=== PATIENT | female | born 1965 | race Native Hawaiian/Other Pacific Islander ===

== ENCOUNTER → 2021-03-04 09:38 | Outpatient (BNVA) | payer OTHER, SELFPAY | PROVIDERS: Family Provider Family Medicine; PCP Family Medicine; Visit Provider Registered Nurse Neonatal Intensive Care | DX: Z20.822 Contact with and (suspected) exposure to COVID-19 (principal) | CPT/HCPCS: 87426; 87635 ==

== ENCOUNTER → 2021-07-12 13:19 | Outpatient (BNVA) | payer OTHER, SELFPAY | PROVIDERS: Family Provider Family Medicine; PCP Family Medicine; Visit Provider Family Medicine | DX: Z20.828 Contact with and (suspected) exposure to other viral communicable diseases (principal) | CPT/HCPCS: 87635 ==

== ENCOUNTER → 2022-03-27 08:35 | Outpatient (BNVA) | payer OTHER, SELFPAY | PROVIDERS: Family Provider Family Medicine; PCP Family Medicine; Visit Provider Family Medicine | DX: I10 Essential (primary) hypertension (principal); I25.10 Atherosclerotic heart disease of native coronary artery without angina pectoris; Z00.00 Encounter for general adult medical examination without abnormal findings | CPT/HCPCS: 80053; 80061; 85025 ==

== ENCOUNTER 2022-05-04 09:52 | Outpatient (CLI) | payer OTHER, SELFPAY ==
--- NOTE | 2022-05-04 10:04 | MM_ITS ---
WS: [id number] Bilateral screening 3D tomosynthesis digital mammogram, 05/04/2022 Clinical Data: SCREEN Comparison: 05/13/2017, 06/02/2007. Findings: The breast parenchymal pattern shows fibroglandular tissue. No spiculated masses or clustered calcifi cations are seen. There are no secondary signs of carcinoma. MM/[place] [id number] Impression: 1. Negative bilateral mammogram unchanged. 2. Recommend annual screening mammograms. BIRADS: 1-Negative FOLLOW UP: 1 Year Follow-up The CAD auto design checker was used.
== END 2022-05-04 09:53 | disposition home or self-care (01) ==
LOC: RAD 09:52
PROVIDERS: PCP Family Medicine; Visit Provider Family Medicine
DX: Z12.31 Encounter for screening mammogram for malignant neoplasm of breast (principal)
CPT/HCPCS: 77063; 77067

== ENCOUNTER 2022-09-14 16:34 | Emergency (ER) | payer OTHER, SELFPAY ==
[2022-09-14] VITALS (12 sets, daily range): BP systolic 130–160; BP diastolic 89–93; PULSE 73–85; RESP 18–24; TEMP 36.7; O2SAT 90–98; BMI 34.7
--- NOTE | 2022-09-14 16:48 | ECG_ITS ---
[facility] Test Date: 2022-09-14 Pat Name: Rema Greene Department: Room: Gender: Female Trouble Tracer: : 1965 Requested By: Ignacia Jacques Order Number: [id number] Hector MD: Rachel Amaya M.D. Measurements Intervals Mobile Rate: 79 P: 54 [place]: 176 QRS: 81 QRSD: 89 T: 63 QT: 310 QTc: 357 Interpretive Statements SINUS RHYTHM NONSPECIFIC T-WAVE ABNORMALITY No previous ECG available for comparison Electronically Signed On 09-14-2022 21:46:36 RENEWALS SPECIALIST by Rachel Amaya M.D. [id number]
--- NOTE | 2022-09-14 16:48 | XRR_ITS ---
PROCEDURE INFORMATION: Exam: XR Chest Exam date and time: 09/14/2022 5:10 PM Age: 56 years old Clinical indication: Other: Chest pain TECHNIQUE: Imaging protocol: Radiologic exam of the chest. Views: 1 view. COMPARISON: No relevant prior studies available. FINDINGS: Lungs: Unremarkable. No consolidation. Pleural spaces: Unremarkable. No pleural effusion. No pneumothorax. Heart/Mediastinum: Ascending thoracic aorta is suspected to be dilated. Bones/joints: Unremarkable. XR/XR chest 1V portable [id number] IMPRESSION: 1. No acute findings. 2. Ascending thoracic aorta is suspected to be dilated. Chest CT could further characterize this.
--- NOTE | 2022-09-14 16:57 | ED_ITS ---
HPI - Chest Pain General: Chief Complaint: Chest Pain Stated Complaint: Chest Pain Time Seen by Provider: 09/14/22 16:44 Source: patient and other (outside provider) History of Present Illness: 56-year-old female comes in complaining of chest pain. She has been having the pain off and on for couple of weeks. The pain has been lasting anywhere from just a couple of minutes to up to 10 minutes. Today the pain is lasted longer than usual. She describes it as a full sensation in her mid chest area radiating up into her jaw and the back of her head. She does get associated nausea, diaphoresis and shortness of breath. Patient has a history of hypertension, diabetes and a family history of cardiac disease. No prior [place] history. She rates the pain currently 4 out of 10. She states at its worst today it was 9 out of 10. Risk Factors: Coronary artery disease risk factors: diabetes, hypertension and family history of CAD before age 50 Review of Systems Narrative: See HPI PFS ED PFSH: Medical History (Updated 09/14/22 @ 17:30 by Ignacia Jacques MD) Allergic rhinitis due to allergen Bronchitis Human bite causing injury URI (upper respiratory infection) Social History (Updated 12/28/20 @ 10:36 by Thor Dickinson LPN) Smoking and tobacco status: current every day smoker cigarettes Quit status (tobacco): not considering quitting Second hand smoke exposure: Yes Alcohol intake: never Desire information about alcohol rehabilitation?: No Desire information about substance/drug rehabilitation?: No Physical Exam Const: COMMON NORMALS: no acute distress, healthy appearing and well nourished HENMT: COMMON NORMALS: normocephalic, atraumatic, Normal external nose present and oropharynx normal HEAD & SCALP: normocephalic and atraumatic NOSE: Normal external nose present Neck/C-Spine: COMMON NORMALS: full ROM and supple Resp: COMMON NORMALS: normal respiratory effort, No use of accessory muscles and clear to auscultation bilaterally AUSCULTATION: clear to auscultation bilaterally Cardio: COMMON NORMALS: regular rate and regular rhythm RATE: regular rate RHYTHM: regular rhythm GI: COMMON NORMALS: Normal to inspection, nondistended, normoactive bowel sounds present, Soft to palpation and non-tender PALPATION: Yes Soft to palpation Extremity: COMMON NORMALS: normal to inspection, no calf tenderness and no pedal edema Course ED course: Patient's been evaluated in the emergency department. She had an IV placed and labs obtained. She had an EKG performed which shows some nonspecific ST segment changes but no STEMI. She has been given 4 baby aspirin as well as sublingual nitroglycerin. Her initial troponin is 6. Patient's chest x-ray shows no infiltrate. She does have a prominent aortic knob per my interpretation. Patient's D-dimer was elevated at 0.72. CT arteriogram of the chest was obtained and is negative for pulmonary embolism but she does have a dilated aorta at 3.6 cm. Reevaluation(s): Reevaluation #1: Patient remains pain-free. Repeat troponin is 6 with a delta of 0. Discussed the patient's results with her. Recommended that she start on Protonix or Prilosec daily in the event that this is acid reflux and esophageal spasm. Did discuss the finding of the aortic aneurysm I recommended she talk with her primary care doctor about vascular surgery referral for follow-up. The patient has been instructed to rest over the weekend. She needs to take an aspirin daily. I have given her prescription for nitroglycerin sublingual tablets to have on hand in the event she gets recurrent chest pain. I have instructed to return immediately to the ER if she gets recurrent chest pain. She should call her primary care doctor Saturday to get scheduled for an outpatient stress test. Vital Signs: Vital signs: Vital Signs Temperature 98.1 F 09/14/22 16:38 Pulse Rate 74 09/14/22 20:14 Respiratory Rate 18 09/14/22 20:14 Blood Pressure 130/93 09/14/22 17:00 Pulse Oximetry 90 09/14/22 19:02 Oxygen Delivery Ny thod 09/14/22 16:59 MDM - Chest Pain Medical Decision Making 56-year-old female with a history of hypertension, diabetes and a family history of cardiac disease who presents with chest pain which has been happening off and on for the past couple of weeks. The pain is been happening more often, lasting longer and becoming more severe in intensity. Patient does present with a very high risk sounding history. Will obtain EKG, chest x-ray, laboratory studies and give the patient aspirin and sublingual nitroglycerin. The patient will need serial troponins. We will also obtain a D-dimer. Patient's D-dimer is elevated at 0.72. We will proceed with CT arteriogram of the chest to rule out pulmonary embolism. Her initial troponin is 6. Lab Data 09/14/22 16:55 09/14/22 16:55 Radiology Impressions Chest X-Ray 09/14/22 16:48 IMPRESSION: 1. No acute findings. 2. Ascending thoracic aorta is suspected to be dilated. Chest CT could further characterize this. Chest CTA 09/14/22 17:54 IMPRESSION: 1. Negative for pulmonary embolus. 2. Ascending thoracic aorta somewhat dilated to 3.6 cm. 3. Emphysematous changes. 4. Coronary artery atherosclerotic calcifications. COMMENTS: In the absence of a history or active diagnosis of lung cancer, it is recommended that this patient with emphysema be evaluated for enrollment in a low dose CT lung cancer screening program. Laboratory Results WBC 8.2 10^3/uL (4.0-10.0) 09/14/22 16:55 RBC 4.57 10^6/uL (4.1-5.3) 09/14/22 16:55 Hgb 12.9 g/dL (11.5-15.3) 09/14/22 16:55 Hct 39.7 % (37.0-47.0) 09/14/22 16:55 MCV 86.9 fl (81-99) 09/14/22 16:55 MCH 28.2 pg (28.0-34.0) 09/14/22 16:55 MCHC 32.5 g/dL (30.0-36.0) 09/14/22 16:55 RDW 13.1 % (12.1-15.1) 09/14/22 16:55 Plt Count 208 10^3/cmm (130-400) 09/14/22 16:55 MPV 11.4 fL (7.4-10.4) H 09/14/22 16:55 Neut % (Auto) 58.3 % 09/14/22 16:55 Lymph % (Auto) 34.0 % 09/14/22 16:55 [place] % (Auto) 5.1 % 09/14/22 16:55 Eos % (Auto) 2.1 % 09/14/22 16:55 Baso % (Auto) 0.4 % 09/14/22 16:55 Neut # (Auto) 4.80 10^3/uL (1.8-7.7) 09/14/22 16:55 Lymph # (Auto) 2.8 10^3/uL (0.8-4.8) 09/14/22 16:55 [place] # (Auto) 0.4 10^3/uL (0.2-0.9) 09/14/22 16:55 Eos # (Auto) 0.2 10^3/uL (0.0-0.8) 09/14/22 16:55 Baso # (Auto) 0.0 10^3/uL (0.0-0.1) 09/14/22 16:55 Nucleated RBC % (auto) 0 % 09/14/22 16:55 Nucleated RBCs # 0.0 /100WBC 09/14/22 16:55 D-Dimer 0.72 ug/mIFEU (0-0.59) H 09/14/22 16:55 Sodium 141 mmol/L (136-145) 09/14/22 16:55 Potassium 3.1 mmol/L (3.5-5.1) L 09/14/22 16:55 Chloride 101 mmol/L (98-107) 09/14/22 16:55 Carbon Dioxide 30 mmol/L (22-29) H 09/14/22 16:55 Anion Gap 13.1 (5-19) 09/14/22 16:55 BUN 19 mg/dL (6-20) 09/14/22 16:55 Creatinine 0.8 mg/dL (0.5-0.9) 09/14/22 16:55 GFR Calculation 73.7 mL/min (90-130) L 09/14/22 16:55 Glucose 105 mg/dL (65-115) 09/14/22 16:55 Calculated Osmolality 295 mOsm/kg (285-295) 09/14/22 16:55 Calcium 10.0 mg/dL (8.5-10.5) 09/14/22 16:55 Total Bilirubin 0.2 mg/dL (0.15-1.2) 09/14/22 16:55 AST 18 U/L (0-32) 09/14/22 16:55 ALT 21 U/L (0-33) 09/14/22 16:55 Alkaline Phosphatase 74 U/L (35-105) 09/14/22 16:55 Troponin T Baseline 6 ng/L (0-10) 09/14/22 16:55 Troponin T 120 Minute 6.00 ng/L (0-10) 09/14/22 18:40 Delta Troponin T 0 ABS# (0-10) 09/14/22 18:40 Total Protein 6.9 g/dL (6.6-8.7) 09/14/22 16:55 Albumin 4.6 g/dL (3.5-5.2) 09/14/22 16:55 Globulin 2.3 g/dL (1.3-4.6) 09/14/22 16:55 EKG Data EKG 1: I personally reviewed and interpreted this EKG as follows: EKG interpretation date: 09/14/22 EKG interpretation time: 17:29 Interpretation: Normal sinus rhythm, [address] segment elevation in V1 and aVR, [address] de pression in V4 and V5, no STEMI Discharge Plan Discharge Patient Disposition: Home Clinical Impression: Chest pain Condition: Stable Prescriptions: New Nitrostat 0.4 mg tablet, sublingual 0.4 mg sublingual Q5M Qty: 90 0RF Rx Instructions: do not exceed 3 doses per episode No Action lisinopril 20 mg tablet 20 mg PO DAILY hydrochlorothiazide 25 mg tablet 25 mg PO DAILY azithromycin 250 mg tablet See Rx Instructions PO .COMPLEX Qty: 6 0RF Rx Instructions: For 250 mg dose pack: take 500 mg today (day 1), then 250 mg for 4 days (days 2-5) PO desloratadine 5 mg tablet,disintegrating 5 mg PO BID Qty: 30 3RF fluticasone propionate 50 mcg/actuation spray,suspension 2 spray intranasal DAILY Qty: 16 3RF Rx Instructions: administer into each nostril benzonatate 200 mg capsule 200 mg PO TID PRN (Reason: cough) Qty: 30 1RF amlodipine 10 mg tablet See Rx Instructions .ROUTE .COMPLEX Qty: 180 3RF Dose Instruction: TAKE 1 TABLET BY MOUTH EVERY DAY FOR hypertension Rx Instructions: TAKE 1 TABLET BY MOUTH EVERY DAY FOR hypertension amitriptyline 10 mg tablet See Rx Instructions .ROUTE .COMPLEX Qty: 90 7RF Dose Instruction: TAKE 3 TABLETS BY MOUTH AT BEDTIME FOR sleep OR HEADACHE Rx Instructions: TAKE 3 TABLETS BY MOUTH AT BEDTIME FOR sleep OR HEADACHE Ozempic 0.25 mg or 0.5 mg(2 mg/1.5 mL) pen injector 0.5 mg SUBCUT .weekly 28 Days Qty: 1.5 3RF alprazolam 0.5 mg tablet 0.5 mg PO TID PRN (Reason: anxiety) Qty: 90 4RF Discharge Orders: Discharge ED (Routine); Ordered 09/14/22 Ordered By: Ignacia Jacques Referrals: Cyril Lara MD [Primary Care Provider] - Discharge Diet: Advance as tolerated Discharge Activity: Limit activity as instructed Patient Instructions: Chest Pain (DC), Opioid Safety, Pain Management Activity Restrictions/Additional Instructions: Continue your aspirin daily. Home to rest. Take a daily Prilosec. Rest over the weekend. Return immediately if you develop recurrent chest pain. Call your primary care doctor on Saturday to get scheduled for an outpatient stress test. Coding Level of Care Code ED Hydrostatic Tubing Tester for Daron Hunt
[2022-09-14] MEDS: acetaminophen 325 mg Tablet 650 MG PO (17:03)
[2022-09-14] MEDS: aspirin 81 mg Chew Tablet 324 MG PO (17:03)
[2022-09-14 17:05] LABS: Basophils % 0.4 %; Eosinophils # 0.2 10^3/uL (0.0-0.8); Eosinophils % 2.1 %; Hematocrit 39.7 % (37.0-47.0); Hemoglobin 12.9 g/dL (11.5-15.3); Lymphocytes # 2.8 10^3/uL (0.8-4.8); Mean Corpuscular HGB Conc 32.5 g/dL (30.0-36.0); Mean Corpuscular Hemoglobin 28.2 pg (28.0-34.0); Mean Corpuscular Volume 86.9 fl (81-99); Mean Platelet Volume 11.4 fL (7.4-10.4); Monocytes # 0.4 10^3/uL (0.2-0.9); Monocytes % 5.1 %; Neutrophils % 58.3 %; Nucleated Red Blood Cells % 0 %; Platelet Count 208 10^3/cmm (130-400); Red Blood Count 4.57 10^6/uL (4.1-5.3); Red Cell Distribution Width 13.1 % (12.1-15.1); White Blood Count 8.2 10^3/uL (4.0-10.0)
[2022-09-14 17:35] LABS: Alanine Aminotransferase 21 U/L (0-33); Albumin Level 4.6 g/dL (3.5-5.2); Alkaline Phosphatase 74 U/L (35-105); Anion Gap 13.1 (5-19); Aspartate Amino Transferase 18 U/L (0-32); Blood Urea Nitrogen 19 mg/dL (6-20); Carbon Dioxide 30 mmol/L (22-29); Chloride 101 mmol/L (98-107); Globulin 2.3 g/dL (1.3-4.6); Glomerular Filtration Rate 73.7 mL/min (90-130); Glucose 105 mg/dL (65-115); Osmolality Calculated 295 mOsm/kg (285-295); Potassium 3.1 mmol/L (3.5-5.1); Sodium 141 mmol/L (136-145); Total Bilirubin 0.2 mg/dL (0.15-1.2); Total Protein 6.9 g/dL (6.6-8.7)
[2022-09-14 17:38] LABS: Troponin(5th) Baseline 6 ng/L (0-10)
[2022-09-14 17:47] LABS: D Dimer 0.72 ug/mIFEU (0-0.59)
--- NOTE | 2022-09-14 17:54 | CTR_ITS ---
PROCEDURE INFORMATION: Exam: CTA Chest With Contrast Exam date and time: 09/14/2022 6:04 PM Age: 56 years old Clinical indication: Pain; Other: Cp w/sob; Additional info: Chest pain elevated d dimer TECHNIQUE: Imaging protocol: Computed tomographic angiography of the chest with contrast. 3D rendering (Not supervised by radiologist): MIP and/or 3D reconstructed images were created by the technologist. Radiation optimization: All CT scans at this facility use at least one of these dose optimization techniques: automated exposure control; mA and/or kV adjustment per patient size (includes targeted exams where dose is matched to clinical indication); or iterative reconstruction. Contrast material: OMNI 350; Contrast volume: 100 ml; Contrast route: INTRAVENOUS (IV); REPORTING DATA: Count of CT and Cardiac NM exams in prior 12 months: This patient has received 0 known CTs and 0 known cardiac nuclear medicine studies in the 12 months prior to the current study. COMPARISON: CR (CHEST, ) 09/14/2022 5:10 PM RADIATION DOSE METRICS: Total DLP (mGy-cm): 402.08 FINDINGS: Pulmonary arteries: Normal. No pulmonary emboli. Aorta: Ascending thoracic aorta somewhat dilated to 3.6 cm. Lungs: Emphysematous changes. Pleural spaces: Unremarkable. No pneumothorax. No pleural effusion. Heart: Unremarkable. No cardiomegaly. No pericardial effusion. Coronary arteries: Coronary artery atherosclerotic calcifications. Lymph nodes: Unremarkable. No enlarged lymph nodes. Bones/joints: Unremarkable. No acute fracture. Soft tissues: Unremarkable. CT/CT angio chest PE protcl [id number] IMPRESSION: 1. Negative for pulmonary embolus. 2. Ascending thoracic aorta somewhat dilated to 3.6 cm. 3. Emphysematous changes. 4. Coronary artery atherosclerotic calcifications. COMMENTS: In the absence of a history or active diagnosis of lung cancer, it is recommended that this patient with emphysema be evaluated for enrollment in a low dose CT lung cancer screening program.
--- NOTE | 2022-09-14 18:56 | ECG_ITS ---
[facility] Test Date: 2022-09-14 Pat Name: Rema Greene Department: Room: Gender: Female Mirror Framer: : 1965 Requested By: Ignacia Jacques Order Number: [id number] Hector MD: Rachel Amaya M.D. Measurements Intervals [place] Rate: 69 P: 66 [place]: 184 QRS: 83 QRSD: 96 T: 76 QT: 414 QTc: 444 Interpretive Statements SINUS RHYTHM Compared to ECG 09/14/2022 16:55:46 T-wave abnormality no longer present Electronically Signed On 09-14-2022 22:01:08 ADMISSIONS NURSE by Rachel Amaya M.D. [id number]
[2022-09-14 19:55] LABS: Troponin 5 2HR Delta 0 ABS# (0-10)
== END 2022-09-14 20:14 | disposition home or self-care (01) ==
PROVIDERS: Emergency Provider Emergency Medicine; PCP Family Medicine
DX: R07.9 Chest pain, unspecified (principal); I25.10 Atherosclerotic heart disease of native coronary artery without angina pectoris; F17.210 Nicotine dependence, cigarettes, uncomplicated
CPT/HCPCS: 71045; 71275; 80053; 84484; 85025; 85378; 93005; 99285; Q9967

== ENCOUNTER → 2023-05-20 15:56 | Outpatient (BNVA) | payer OTHER, SELFPAY | PROVIDERS: PCP Family Medicine; Visit Provider Family Medicine | DX: R30.0 Dysuria (principal); I10 Essential (primary) hypertension; N39.0 Urinary tract infection, site not specified | CPT/HCPCS: 81000; 87086 ==

== ENCOUNTER → 2023-06-10 16:27 | Outpatient (BNVA) | payer OTHER, SELFPAY | PROVIDERS: PCP Family Medicine; Visit Provider Family Medicine | DX: R51.9 Headache, unspecified (principal) | CPT/HCPCS: 85651; 86140 ==

== ENCOUNTER 2023-07-23 07:55 | Outpatient (CLI) | payer OTHER, SELFPAY ==
--- NOTE | 2023-07-23 08:45 | MR_ITS ---
WS: [id number] MRI BRAIN WITH AND WITHOUT CONTRAST HISTORY: worsening headaches COMPARISON: 01/04/2012 TECHNIQUE: Multiplanar imaging performed through the brain with MultiHance 20 ml's IV. No acute infarcts are seen. Collins-white matter differentiation is well preserved. Very mild progressio n of small vessel ischemic changes throughout the white matter. No infarct. No hemorrhage. No susceptibility artifacts or prior lacunar infarcts. Ventricles and extra-axial spaces are normal. Clivus and pituitary gland are normal. Visualized posterior fossa and brainstem are also normal. Postcontrast images are negative for masses or vascular malformations. Dural venous sinuses are normal. Paranasal sinuses: Well aerated with no significant disease. Mastoid air cells: Normal. Calvarium and scalp: Normal. IMPRESSION: 1. No acute infarcts or hemorrhage. 2. Minimal small vessel ischemic change with mild progression since 2011. This may be related to no rmal aging, migraine headaches, hypertension or diabetes. No large territory infarct. 3. No significant sinus disease. Mastoid air cells are clear.
[2023-07-23] MEDS: gadobenate dimeglumine 20 mL vial IV (09:39)
== END 2023-07-23 07:56 | disposition home or self-care (01) ==
PROVIDERS: PCP Family Medicine; Visit Provider Family Medicine
DX: R51.9 Headache, unspecified (principal)
CPT/HCPCS: 70553; A9577

== ENCOUNTER 2023-08-11 02:50 | Emergency (ER) | payer OTHER, SELFPAY ==
[2023-08-11 02:56] VITALS: BP 174/124; PULSE 81; RESP 16; TEMP 36.8; O2SAT 98
[2023-08-11 06:11] LABS: Basophils % 0.3 %; Eosinophils # 0.1 10^3/uL (0.0-0.8); Eosinophils % 0.6 %; Hematocrit 49.4 % (36-47); Lymphocytes # 2.2 10^3/uL (0.8-4.8); Lymphocytes % 20.8 %; Mean Corpuscular Hemoglobin 28.7 pg (27-33); Mean Corpuscular Volume 87.1 fl (85-98); Mean Platelet Volume 12.3 fL (7.4-10.4); Monocytes # 0.6 10^3/uL (0.2-0.9); Monocytes % 5.2 %; Neutrophils # 7.78 10^3/uL (1.8-7.7); Neutrophils % 72.9 %; Nucleated Red Blood Cells % 0 %; Platelet Count 228 10^3/cmm (157-399); Red Blood Count 5.67 10^6/uL (3.85-5.65); Red Cell Distribution Width 13.5 % (12.1-15.1); White Blood Count 10.67 10^3/uL (3.29-11.43)
[2023-08-11] MEDS: ketorolac 30 mg/mL INJ IVP (06:12)
[2023-08-11] MEDS: metoclopramide 5 mg/mL SDV 2 mL 10 MG IVP (06:13)
[2023-08-11] MEDS: hyDRALAzine 20 mg/mL INJ 1 mL 10 MG IVP (06:13)
[2023-08-11] MEDS: diphenhydrAMINE 50 mg/mL SDV 1mL IM (06:13)
[2023-08-11 06:23] VITALS: PULSE 81; RESP 18; O2SAT 100
[2023-08-11 06:39] VITALS: BP 149/108; PULSE 83; O2SAT 96
[2023-08-11 06:40] LABS: Alanine Aminotransferase 21 U/L (0-33); Alkaline Phosphatase 86 U/L (35-105); Anion Gap 14.5 (5-19); Aspartate Amino Transferase 18 U/L (0-32); Blood Urea Nitrogen 13 mg/dL (6-20); Calcium 10.7 mg/dL (8.5-10.5); Carbon Dioxide 29 mmol/L (22-29); Chloride 99 mmol/L (98-107); Globulin 3.7 g/dL (1.3-4.6); Glomerular Filtration Rate 85.6 mL/min (90-130); Glucose 119 mg/dL (65-115); Osmolality Calculated 289 mOsm/kg (285-295); Potassium 3.5 mmol/L (3.5-5.1); Sodium 139 mmol/L (136-145); Total Bilirubin 0.8 mg/dL (0.15-1.2); Total Protein 8.7 g/dL (6.6-8.7)
[2023-08-11 07:00] VITALS: BP 149/108; PULSE 85; RESP 17; O2SAT 97
--- NOTE | 2023-08-11 07:12 | W.ED.HA ---
HPI - Headache General: Chief Complaint: Headache Stated Complaint: Migrain Time Seen by Provider: 08/11/23 06:02 History of Present Illness: 57-year-old female presents emergency department complaints of a migraine headache. She states she has a history of migraine headaches. She states her headache is a right-sided headache and when it occurs she has photosensitivity and sensitivity to loud sounds. She states that the dark room and minimal movement helps her headache but has not resolved. She states she also has a history of hypertension takes carvedilol and amlodipine. And today her blood pressure is elevated which she thinks is worsening her headache. She denies nuchal rigidity. She denies known injury or trauma. Associated symptoms: Reports nausea and vomiting Review of Systems General: Reports: 10 or more systems reviewed and unremarkable except in HPI and below GI: Reports: nausea and vomiting Neuro: Reports: headache(s) PFS ED PFSH: Medical History Bronchitis Allergic rhinitis due to allergen URI (upper respiratory infection) Human bite causing injury Social History Smoking and tobacco/nicotine status: current every day tobacco/nicotine user cigarettes Quit status (tobacco/nicotine): not considering quitting Second hand smoke exposure: Yes Alcohol intake: never Substance/Drug Use: never Physical Exam Narrative: EXAM NARRATIVE: Constitutional: the patient appears well nourished and with normal development. Vital signs reviewed as documented. HENMT: Normocephalic, atraumatic. External ears normal appearance without drainage. Nose without drainage, normal appearance. Mucus membranes moist. Neck is supple, No jugular venous distension, trachea is midline, no appreciable carotid bruits. No lymphadenopathy. No meningeal signs. Flexion, extension and lateral rotation is without pain. Eyes: Pupils are equal, round, reactive to light and accommodation. No scleral icterus. Extra-ocular movement are intact. Thorax is symmetrical and with equal rise and fall with respirations. Resp: Lungs are clear to auscultation. No wheezes, rales, crackles or ronchi at present. Cardio: Regular rate and rhythm. Positive S1, S2. No appreciable murmurs, rubs or gallops. GI: Abdominal exam reveals normal bowel sounds to all quadrants. No organomegaly. No obvious palpable masses noted. No hepatomegally appreciated. Soft, non-tender to palpation. Extremity: Extremities are non-edematous and both femoral and pedal pulses are 2+ and equal bilaterally. Moves all extremities well, sensation in all extremities. Neuro: Alert and oriented x4, person, place, time and situation. Cranial nerves II through XII are grossly intact, there is no focal neurological deficits that I can appreciate at present. Motor strength in the upper and lower extremities are equal and bilateral 5/5. Psych: Cooperative, calm, normal thought process, appropriate judgment. Skin: No lesions, rashes. No gross abnormalities noted. Back: Symmetrical, no obvious deformity, No CVA tenderness Course Vital Signs: Vital signs: Vital Signs Temperature 98.3 F 08/11/23 02:56 Pulse Rate 85 08/11/23 07:00 Respiratory Rate 17 08/11/23 07:00 Blood Pressure 149/108 08/11/23 07:00 Pulse Oximetry 97 08/11/23 07:00 Oxygen Delivery Me thod Room Air 08/11/23 07:00 MDM - Headache Medical Decision Making Physical exam completed document 57-year-old female presents emerged part with complaints of migraine headache. She has a history migraine headaches. I will provide her IV pain medication as well as antihypertensive medication to include hydralazine. I will discuss with the patient increasing her amlodipine dose from 5 mg to 10 mg which will also help in her migraine headache Medical Records I reviewed the patient's medical records. Lab Data I reviewed the patient's lab results. 08/11/23 04:35 08/11/23 04:35 Laboratory Results WBC 10.67 10^3/uL (3.29-11.43) 08/11/23 04:35 RBC 5.67 10^6/uL (3.85-5.65) H 08/11/23 04:35 Hgb 16.30 g/dL (11.27-16.99) 08/11/23 04:35 Hct 49.4 % (36-47) H 08/11/23 04:35 MCV 87.1 fl (85-98) 08/11/23 04:35 MCH 28.7 pg (27-33) 08/11/23 04:35 MCHC 33.0 g/dL (30-55) 08/11/23 04:35 RDW 13.5 % (12.1-15.1) 08/11/23 04:35 Plt Count 228 10^3/cmm (157-399) 08/11/23 04:35 MPV 12.3 fL (7.4-10.4) H 08/11/23 04:35 Neut % (Auto) 72.9 % 08/11/23 04:35 Lymph % (Auto) 20.8 % 08/11/23 04:35 [place] % (Auto) 5.2 % 08/11/23 04:35 Eos % (Auto) 0.6 % 08/11/23 04:35 Baso % (Auto) 0.3 % 08/11/23 04:35 Neut # (Auto) 7.78 10^3/uL (1.8-7.7) H 08/11/23 04:35 Lymph # (Auto) 2.2 10^3/uL (0.8-4.8) 08/11/23 04:35 [place] # (Auto) 0.6 10^3/uL (0.2-0.9) 08/11/23 04:35 Eos # (Auto) 0.1 10^3/uL (0.0-0.8) 08/11/23 04:35 Baso # (Auto) 0.0 10^3/uL (0.0-0.1) 08/11/23 04:35 Nucleated RBC % (auto) 0 % 08/11/23 04:35 Nucleated RBCs # 0.0 /100WBC 08/11/23 04:35 Sodium 139 mmol/L (136-145) 08/11/23 04:35 Potassium 3.5 mmol/L (3.5-5.1) 08/11/23 04:35 Chloride 99 mmol/L (98-107) 08/11/23 04:35 Carbon Dioxide 29 mmol/L (22-29) 08/11/23 04:35 Anion Gap 14.5 (5-19) 08/11/23 04:35 BUN 13 mg/dL (6-20) 08/11/23 04:35 Creatinine 0.7 mg/dL (0.5-0.9) 08/11/23 04:35 GFR Calculation 85.6 mL/min (90-130) L 08/11/23 04:35 Glucose 119 mg/dL (65-115) H 08/11/23 04:35 Calculated Osmolality 289 mOsm/kg (285-295) 08/11/23 04:35 Calcium 10.7 mg/dL (8.5-10.5) H 08/11/23 04:35 Total Bilirubin 0.8 mg/dL (0.15-1.2) 08/11/23 04:35 AST 18 U/L (0-32) 08/11/23 04:35 ALT 21 U/L (0-33) 08/11/23 04:35 Alkaline Phosphatase 86 U/L (35-105) 08/11/23 04:35 Total Protein 8.7 g/dL (6.6-8.7) 08/11/23 04:35 Albumin 5.0 g/dL (3.5-5.2) 08/11/23 04:35 Globulin 3.7 g/dL (1.3-4.6) 08/11/23 04:35 No radiology studies performed this visit Discharge Plan Discharge Patient Disposition: Home Clinical Impression: Hypertension, uncontrolled Migraine Qualifiers: Migraine type: unspecified Status migrainosus presence: without status migrainosus Intractability: not intractable Qualified Code(s): G43.909 - Migraine, unspecified, not intractable, without status migrainosus Condition: Stable Prescriptions: No Action acetaminophen [Tylenol Extra Strength] 500 mg tablet 1,000 mg PO Q6H PRN (Reason: fever) Qty: 20 0RF fluticasone propionate 50 mcg/actuation spray,suspension 2 spray intranasal DAILY Qty: 16 3RF Rx Instructions: administer into each nostril amlodipine 5 mg tablet See Rx Instructions .ROUTE .COMPLEX Qty: 30 3RF Dose Instruction: TAKE 1 TABLET BY MOUTH EVERY DAY FOR hypertension Rx Instructions: TAKE 1 TABLET BY MOUTH EVERY DAY FOR hypertension carvedilol 6.25 mg tablet 6.25 mg PO BID Qty: 60 11RF Rx Instructions: must administer with a meal/food ciprofloxacin HCl 500 mg tablet 500 mg PO BID Qty: 20 0RF lisinopril 20 mg tablet See Rx Instructions .ROUTE .COMPLEX Qty: 180 10RF Dose Instruction: TAKE 1 TABLET BY MOUTH EVERY DAY Rx Instructions: TAKE 1 TABLET BY MOUTH EVERY DAY hydrochlorothiazide 25 mg tablet See Rx Instructions .ROUTE .COMPLEX Qty: 90 10RF Dose Instruction: TAKE 1 TABLET BY MOUTH EVERY DAY Rx Instructions: TAKE 1 TABLET BY MOUTH EVERY DAY alprazolam 0.5 mg tablet 0.5 mg PO TID PRN (Reason: anxiety) Qty: 90 4RF amitriptyline 10 mg tablet See Rx Instructions .ROUTE .COMPLEX Qty: 90 7RF Dose Instruction: TAKE 3 TABLETS BY MOUTH AT BEDTIME FOR sleep or HEADACHE Rx Instructions: TAKE 3 TABLETS BY MOUTH AT BEDTIME FOR sleep or HEADACHE Nitrostat 0.4 mg tablet, sublingual 0.4 mg sublingual Q5M Qty: 90 0RF Rx Instructions: do not exceed 3 doses per episode Discharge Orders: Discharge ED (Routine); Ordered 08/11/23 Ordered By: Héctor Guzman Referrals: Cyril Lara MD [Primary Care Provider] - Discharge Diet: Low Salt Discharge Activity: Resume usual activity Patient Instructions: Opioid Safety, Pain Management Activity Restrictions/Additional Instructions: Activity Restrictions/Additional Instructions: Thank you for choosing [facility] for your healthcare needs today. Please realize that you were seen in the Emergency Department and that we are providing you with an emergency medical screening exam and this may not be a complete and all inclusive of all the testing and or medical work-up that you may need to determine your ailment or severity of your illness. It is very important that you follow-up as instructed with your Primary care provider or Specialist for additional evaluation and to discuss your medical treatment plan. You may return to the Emergency Department should you have concerns or if your condition changes or worsens in any way. Coding Level of Care Code ED Power Plant Engineer for Daron Hunt
== END 2023-08-11 07:36 | disposition home or self-care (01) ==
PROVIDERS: Emergency Provider Internal Medicine; PCP Family Medicine
DX: G43.909 Migraine, unspecified, not intractable, without status migrainosus (principal); I10 Essential (primary) hypertension; F17.210 Nicotine dependence, cigarettes, uncomplicated
CPT/HCPCS: 80053; 85025; 96372; 96374; 96375; 99284; J0360; J1200; J1885; J2765

== ENCOUNTER 2023-08-12 16:35 | Emergency (ER) | payer OTHER, SELFPAY ==
[2023-08-12 16:50] VITALS: BP 155/80; PULSE 76; RESP 16; TEMP 38; O2SAT 96; BMI 34.4
--- NOTE | 2023-08-12 16:52 | ECG_ITS ---
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 Measurements Intervals [place] Rate: 75 P: 64 WI: 170 QRS: 74 QRSD: 72 T: 66 QT: 354 QTc: 395 Interpretive Statements SINUS RHYTHM LOW QRS VOLTAGE IN PRECORDIAL LEADS [QRS DEFLECTION < 1.0 mV IN CHEST LEADS] NONSPECIFIC T-WAVE ABNORMALITY Compared to ECG 09/14/2022 18:56:27 Low QRS voltage now present T-wave abnormality now present Electronically Signed On 08-12-2023 19:29:52 UNIT COORDINATOR by Rachel Amaya M.D. [id number]
--- NOTE | 2023-08-12 17:10 | CTR_ITS ---
PROCEDURE INFORMATION: Exam: CT Head Without Contrast Exam date and time: 08/12/2023 5:58 PM Age: 57 years old Clinical indication: Stroke-like symptoms; Headache; Additional info: AMS TECHNIQUE: Imaging protocol: Computed tomography of the head without contrast. Radiation optimization: All CT scans at this facility use at least one of these dose optimization techniques: automated exposure control; mA and/or kV adjustment per patient size (includes targeted exams where dose is matched to clinical indication); or iterative reconstruction. Other technique: STROKE PROTOCOL was implemented. COMPARISON: MR head wo/w con [id number] 07/23/2023 9:07 AM RADIATION DOSE METRICS: Total DLP (mGy-cm): 592 FINDINGS: Brain: Large intraparenchymal hemorrhage in the right frontal lobe measuring up to 4.9 x 3.9 cm with moderate surrounding vasogenic edema and sulcal effacement. small subdural and subarachnoid component. Additional thin subdural component along the right frontal convexity and mild subdural component along the anterior interhemispheric fissure. Mild mass effect with leftward midline shift by 4 mm at the level of the frontal lobes. Cerebral ventricles: No ventriculomegaly. Paranasal sinuses: Visualized sinuses are unremarkable. No fluid levels. Mastoid air cells: Visualized mastoid air cells are well aerated. Bones/joints: Unremarkable. No acute fracture. Soft tissues: Unremarkable. CT/CT head wo con* [id number] IMPRESSION: Large right frontal intraparenchymal hematoma as well as small subdural and subarachnoid components as detailed above. Moderate surrounding vasogenic edema, sulcal effacement and mild midline shift at the frontal lobe level. THIS REPORT CONTAINS FINDINGS THAT MAY BE CRITICAL TO PATIENT CARE. The exam findings were verbally communicated by me to TOYIN BLANTON via telephone conference at 6:17 PM INTERMEDIATE MANAGER on 08/12/2023. The findings were acknowledged and understood. ASPECT score is 10.
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
[2023-08-12] MEDS: acetaminophen 500 mg Tablet 1000 MG PO (17:29)
[2023-08-12] MEDS: diphenhydrAMINE 50 mg/mL SDV 1mL IVP (17:38)
[2023-08-12] MEDS: metoclopramide 5 mg/mL SDV 2 mL 10 MG IVP (17:39)
[2023-08-12 17:50] VITALS: BP 150/96; PULSE 77; TEMP 37.1
[2023-08-12 18:21] LABS: Basophils % 0.2 %; Eosinophils % 0.4 %; Hematocrit 43.8 % (36-47); Lymphocytes # 2.2 10^3/uL (0.8-4.8); Lymphocytes % 23.9 %; Mean Corpuscular HGB Conc 33.1 g/dL (30-55); Mean Corpuscular Hemoglobin 28.9 pg (27-33); Mean Corpuscular Volume 87.3 fl (85-98); Monocytes # 0.5 10^3/uL (0.2-0.9); Monocytes % 4.9 %; Neutrophils # 6.43 10^3/uL (1.8-7.7); Neutrophils % 70.4 %; Nucleated Red Blood Cells % 0 %; Platelet Count 199 10^3/cmm (157-399); Red Blood Count 5.02 10^6/uL (3.85-5.65); Red Cell Distribution Width 13.9 % (12.1-15.1); White Blood Count 9.15 10^3/uL (3.29-11.43)
[2023-08-12 18:32] LABS: Alanine Aminotransferase 17 U/L (0-33); Albumin Level 4.6 g/dL (3.5-5.2); Alkaline Phosphatase 73 U/L (35-105); Anion Gap 15.4 (5-19); Aspartate Amino Transferase 17 U/L (0-32); Blood Urea Nitrogen 16 mg/dL (6-20); Calcium 9.8 mg/dL (8.5-10.5); Carbon Dioxide 28 mmol/L (22-29); Chloride 100 mmol/L (98-107); Globulin 3.1 g/dL (1.3-4.6); Glomerular Filtration Rate 73.4 mL/min (90-130); Glucose 118 mg/dL (65-115); Osmolality Calculated 292 mOsm/kg (285-295); Potassium 3.4 mmol/L (3.5-5.1); Sodium 140 mmol/L (136-145); Total Bilirubin 1.2 mg/dL (0.15-1.2); Total Protein 7.7 g/dL (6.6-8.7)
--- NOTE | 2023-08-12 18:34 | PC.NURSE ---
Pt placed on bedside monitor technician
[2023-08-12] MEDS: nicardipine 20 MG/200 ML PREMIX 100 MG IV (18:40)
--- NOTE | 2023-08-12 18:42 | PC.NURSE ---
nicardipine drip started at 10mg/hr per Dr. Meier instead of the 5mg starting dose.
[2023-08-12 18:44] LABS: SARS Covid-2 Antigen negative (Negative)
[2023-08-12 18:45] LABS: Influenza A by IFA negative (Negative); Influenza B by IFA negative (Negative)
[2023-08-12 19:02] VITALS: BP 142/84; PULSE 83; RESP 22; O2SAT 96
[2023-08-12 19:05] LABS: Amphetamines Screen Urine Negative (Negative); Barbiturates Screen Urine Negative (Negative); Benzodiazepines Screen Urine Positive (Negative); Cocaine Screen Urine Negative (Negative); Opiate Screen Urine Negative (Negative); PCP Screen Urine Negative (Negative); THC Screen Urine Negative (Negative)
[2023-08-12 19:12] LABS: Glucose Urine UA Norm (Normal); Ketones Urine Negative (Negative); Protein Urine Neg (Negative); Specific Gravity, Urine 1.025 (1.005-1.030); Urine Appearance Clear (CLEAR); Urine Color Yellow (Yellow); pH Urine 6.5 (5-7)
[2023-08-12 19:13] LABS: Add Urine Culture? No; Add Urine Microscopic? YES; Bacteria Urine TRACE /hpf; Bilirubin Urine Neg (Negative); Blood Urine 2+ (Negative); Leukocyte Esterase Urine Negative (Negative); Nitrate Urine Negative (Negative); Squamous Epithelial Cell Urine 0-4 /hpf (0-5); Urobilinogen Urine Norm (Negative); WBC Urine 0-4 /hpf (0-5)
[2023-08-12 19:39] VITALS: BP 124/76; PULSE 83; O2SAT 98
== END 2023-08-12 19:41 | disposition short-term general hospital (02) ==
PROVIDERS: Emergency Provider Emergency Medicine; PCP Family Medicine
DX: I61.8 Other nontraumatic intracerebral hemorrhage (principal); F17.210 Nicotine dependence, cigarettes, uncomplicated; Z11.52 Encounter for screening for COVID-19
CPT/HCPCS: 70450; 80053; 80306; 81001; 85025; 87426; 87804; 93005; 96365; 96375; 99285; J1200; J2765

== ENCOUNTER 2023-08-22 09:03 | Emergency (ER) | payer OTHER, SELFPAY ==
[2023-08-22 09:04] VITALS: BP 171/84; PULSE 91; RESP 16; TEMP 36.3; O2SAT 96; BMI 34.4
--- NOTE | 2023-08-22 09:27 | XR_ITS ---
WS: [id number] XR chest 1V portable [id number] REASON FOR EXAM: dyspnea/cough FINDINGS: Chest is unchanged compared to 09/14/2022. Significant tortuosity and ectasia of the thoracic aorta. Mediastinum otherwise unremarkable. Normal heart size. Minimal hide calcified granulomatous changes in both lungs. No acute pulmonary parenchymal or pleural abnormality. Moderate degenerative spondylosis in the mid and lower thoracic spine. IMPRESSION: Stable chest without acute abnormality.
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
--- NOTE | 2023-08-22 09:37 | ECG_ITS ---
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 Measurements Intervals [place] Rate: 80 P: 59 CO: 163 QRS: 63 QRSD: 77 T: 57 QT: 367 QTc: 424 Interpretive Statements SINUS RHYTHM LOW QRS VOLTAGE IN PRECORDIAL LEADS [QRS DEFLECTION < 1.0 mV IN CHEST LEADS] Compared to ECG 08/12/2023 17:13:16 T-wave abnormality no longer present Electronically Signed On 08-22-2023 11:38:32 VICE PRESIDENT QUALITY by Oskar Thomas M.D. [id number]
[2023-08-22 10:00] LABS: Basophils % 0.5 %; Eosinophils # 0.1 10^3/uL (0.0-0.8); Eosinophils % 1.7 %; Hematocrit 40.6 % (36-47); Lymphocytes % 30.2 %; Mean Corpuscular Hemoglobin 29.1 pg (27-33); Mean Corpuscular Volume 88.3 fl (85-98); Mean Platelet Volume 10.9 fL (7.4-10.4); Monocytes # 0.3 10^3/uL (0.2-0.9); Monocytes % 3.9 %; Neutrophils # 4.21 10^3/uL (1.8-7.7); Neutrophils % 63.5 %; Nucleated Red Blood Cells % 0 %; Platelet Count 251 10^3/cmm (157-399); Red Cell Distribution Width 13.3 % (12.1-15.1); White Blood Count 6.62 10^3/uL (3.29-11.43)
--- NOTE | 2023-08-22 10:09 | CT_ITS ---
WS: [id number] CT HEAD TECHNIQUE: Noncontrast CT of the head obtained from the skullbase to the vertex. CLINICAL INFORMATION: recent intracranial hemmorhage COMPARISON: CT 08/12/2023 DLP: 1113.[address] scans at [facility] use at least one of these dose optimization techniques: automated e xposure control; mA and/or kV adjustment per patient size (includes targeted exams where dose is matc hed to clinical indication); or iterative reconstruction. FINDINGS: Previously described RIGHT frontal intraparenchymal hematoma is similar in appearance to previous. No evidence of new hemorrhage. Expected evolution with slight increase in the surrounding edema in the RIGHT inferior frontal lobe. Mild RIGHT to LEFT midline shift measuring 3 mm with mass effect on the RIGHT frontal horn. No hydrocephalus. Basilar cisterns are patent. Normal fourth ventricle. Normal ba silar cisterns. Previously described subdural and subarachnoid blood products have resolved. IMPRESSION: 1. Previously described RIGHT inferior frontal intraparenchymal hematoma is stable in appearance wit h expected evolution. No evidence of new hemorrhage. 2. Slightly increased moderate surrounding RIGHT frontal edema. Mild mass effect on the RIGHT fronta l horn with mild RIGHT to LEFT midline shift measuring 3 mm. 3. No hydrocephalus. Notified Hank Perez DO at 08/22/2023 10:40 AM.
[2023-08-22 10:12] LABS: Alanine Aminotransferase 18 U/L (0-33); Albumin Level 3.9 g/dL (3.5-5.2); Alkaline Phosphatase 67 U/L (35-105); Anion Gap 15.9 (5-19); Aspartate Amino Transferase 14 U/L (0-32); Blood Urea Nitrogen 20 mg/dL (6-20); Calcium 8.9 mg/dL (8.5-10.5); Carbon Dioxide 24 mmol/L (22-29); Chloride 104 mmol/L (98-107); Globulin 2.9 g/dL (1.3-4.6); Glomerular Filtration Rate 73.4 mL/min (90-130); Glucose 161 mg/dL (65-115); Osmolality Calculated 296 mOsm/kg (285-295); Potassium 3.9 mmol/L (3.5-5.1); Sodium 140 mmol/L (136-145); Total Bilirubin 0.4 mg/dL (0.15-1.2); Total Protein 6.8 g/dL (6.6-8.7)
[2023-08-22 10:14] LABS: Troponin(5th) Baseline < 6 ng/L (0-10)
[2023-08-22 10:30] VITALS: BP 150/98; PULSE 74; O2SAT 94
--- NOTE | 2023-08-22 10:30 | PC.PHAR ---
pt and pts family verified pts medications-pt and pts family states xanax 0.5mg tid prn was dced at [facility] ~08/12/23 along with coreg 6.25mg bid and hctz 25mg daily-pt states not been on ozempic 0.5mg q7d for a long time ext shows last filled 12/12/22-pt states she has been out of nitro for years-
[2023-08-22 11:00] VITALS: BP 140/82; PULSE 69; O2SAT 94
== END 2023-08-22 11:33 | disposition home or self-care (01) ==
PROVIDERS: Emergency Provider Family Medicine; PCP Family Medicine
DX: I10 Essential (primary) hypertension (principal); F17.210 Nicotine dependence, cigarettes, uncomplicated; Z86.73 Personal history of transient ischemic attack (TIA), and cerebral infarction without residual deficits
CPT/HCPCS: 36415; 70450; 71045; 80053; 84484; 85025; 93005; 99285

== ENCOUNTER 2023-10-02 13:00 | Outpatient (CLI) | payer OTHER, SELFPAY | END 2023-10-02 13:01 | disposition home or self-care (01) | LOC: SLEEP 10-03 10:13 | PROVIDERS: PCP Family Medicine; Visit Provider Family Medicine | DX: G47.33 Obstructive sleep apnea (adult) (pediatric) (principal) | CPT/HCPCS: G0399 ==

== ENCOUNTER 2024-01-09 06:52 | Outpatient (CLI) | payer OTHER, SELFPAY ==
--- NOTE | 2024-01-09 07:09 | MR_ITS ---
WS: [id number] MRI BRAIN WITH AND WITHOUT CONTRAST HISTORY: History of prior bleed. COMPARISON: CT head 08/22/2023 and prior MRI 07/23/2023, 01/04/2012 TECHNIQUE: Multiplanar imaging performed through the brain with MultiHance 20 ml's IV. Diffusion imaging is normal. There is an area of encephalomalacia involving the anterior inferior RIG HT frontal lobe which is at the site of the prior hemorrhagic infarct. There is a nonenhancing area o f encephalomalacia now present with residual hemosiderin. No residual mass effect or edema. Consisten t with an evolving intraparenchymal hematoma as described on 08/22/2023 CT. Very mild cerebral atrophy and mild small vessel ischemic disease. No hippocampal atrophy. Normal size ventricles. 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 Clivus and pituitary gland are normal. Visualized posterior fossa and brainstem are also normal. Postcontrast images are negative for masses or vascular malformations. Dural venous sinuses are normal. Paranasal sinuses: Well aerated with no significant disease. Mastoid air cells: Normal. Calvarium and scalp: Normal. MR/MR head wo/w con [id number] IMPRESSION: 1. No acute infarct. 2. Area of encephalomalacia in the RIGHT frontal lobe at the site of a prior i ntraparenchymal hemorrhage. Evolving as expected. No associated enhancing mass. 3. 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 4. Mild small vessel ischemic disease. 5. No areas of abnormal enhancement.
[2024-01-09] MEDS: gadobenate dimeglumine 20 mL vial IV (07:34)
== END 2024-01-09 06:53 | disposition home or self-care (01) ==
PROVIDERS: PCP Family Medicine; Visit Provider Physician Assistant
DX: I61.1 Nontraumatic intracerebral hemorrhage in hemisphere, cortical (principal)
CPT/HCPCS: 70553; A9577

== ENCOUNTER 2024-01-14 12:30 | Outpatient (CLI) | payer OTHER, SELFPAY ==
--- NOTE | 2024-01-14 13:00 | CTR_ITS ---
PROCEDURE INFORMATION: Exam: CTA Chest With Contrast Exam date and time: 01/14/2024 1:38 PM Age: 58 years old Clinical indication: Condition or disease; Other: Thoracic aortic aneurysm TECHNIQUE: Imaging protocol: Computed tomographic angiography of the chest with contrast. Exam focused on the arteries. 3D rendering (Not supervised by radiologist): MIP and/or 3D reconstructed images were created by the technologist. Radiation optimization: All CT scans at this facility use at least one of these dose optimization techniques: automated exposure control; mA and/or kV adjustment per patient size (includes targeted exams where dose is matched to clinical indication); or iterative reconstruction. Contrast material: OMNI 350; Contrast volume: 100 ml; Contrast route: INTRAVENOUS (IV); COMPARISON: CT angio chest PE protcl [id number] 09/14/2022 6:04 PM RADIATION DOSE METRICS: Total DLP (mGy-cm): 688.2 FINDINGS: Pulmonary arteries: Normal. No pulmonary emboli. Aorta: The fusiform ectasia of the ascending thoracic aorta measures 3.8 cm in both AP and transverse dimensions. Previously it measured 3.6 cm. Borderline dilatation of the aortic root is unchanged measuring 3.9 cm in diameter at the cusps. No other significant aortic pathology. Lungs: Slightly increased small amounts of subsegmental atelectasis. Unchanged small bleb lateral right hemithorax. Unchanged tiny bulla right lower lobe. Unchanged small amount of right middle lobe scarring. Otherwise, unremarkable. Pleural spaces: Unremarkable. No pneumothorax. No pleural effusion. Heart: Unremarkable. No cardiomegaly. No pericardial effusion. Coronary arteries: Unchanged small amount of coronary artery calcification. Lymph nodes: Unremarkable. No enlarged lymph nodes. Bones/joints: Unchanged mild scoliosis with mild multilevel spondylosis. Otherwise, unremarkable. Soft tissues: Otherwise, unremarkable visualized body wall. Otherwise, unremarkable soft tissues. CT/CT angio chest [id number] IMPRESSION: 1. Fusiform ectasia of the ascending thoracic aorta measures 3.8 cm in maximum diameter. Previously it measured 3.6 cm. 2. Borderline dilatation of the aortic root is unchanged measuring 3.9 cm in diameter at the cusps. 3. No other significant systemic arterial pathology identified. 4. Additional details as above.
[2024-01-14 13:31] LABS: Blood Urea Nitrogen 12 mg/dL (8-23); Glomerular Filtration Rate 73.2 mL/min (90-130)
== END 2024-01-14 12:31 | disposition home or self-care (01) ==
LOC: RAD 12:30
PROVIDERS: PCP Family Medicine; Visit Provider Thoracic Surgery (Cardiothoracic Vascular Surgery)
DX: I77.810 Thoracic aortic ectasia (principal)
CPT/HCPCS: 71275; 82565; 84520; Q9967

== ENCOUNTER 2024-03-18 10:11 | Emergency (ER) | payer OTHER, SELFPAY ==
[2024-03-18 10:16] VITALS: BP 172/89; PULSE 80; RESP 14; TEMP 36.6; O2SAT 96; BMI 36.0
--- NOTE | 2024-03-18 10:30 | CT_ITS ---
WS: [id number] CT HEAD NONCONTRAST HISTORY: Headache with recent brain bleed TECHNIQUE: Contiguous axial imaging performed through the brain in 3.0 mm imaging. Bone and soft tis pascual windows. Sagittal and coronal reformats reviewed. All CT scans at [facility] use at least one of these dose optimization techniques: automated exposure control; mA and/or kV adjustment per p atient size (includes targeted exams where dose is matched to clinical indication); or iterative javi nstruction. DLP: 1100.48 mGy.cm COMPARISON: 08/22/2023 No acute intracranial hemorrhage or blood products are identified. Volume loss with encephalomalacia has developed in the RIGHT frontal lobe in the site of the previously described intraparenchymal hemo rrhage. Mild atrophy and mild small vessel ischemic disease. No new infarct. No midline shift. Ventricles: Normal size with no hydrocephalus. No inferior displacement of the cerebellar tonsils. 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 Mastoid air cells: Well pneumatized. Calvarium and scalp: Skull is intact with no soft tissue edema or swelling. CT/CT head wo con* [id number] IMPRESSION: 1. No acute intracranial hemorrhage or edema. 2. Developing encephalomalacia in the RIGHT frontal lobe at the site of the pr eviously described intraparenchymal hemorrhage. No residual blood products. No midline shift. 3. Mild atrophy and small vessel disease are stable.
--- NOTE | 2024-03-18 10:34 | ECG_ITS ---
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 Measurements Intervals [place] Rate: 78 P: 53 VT: 176 QRS: 76 QRSD: 89 T: 73 QT: 301 QTc: 345 Interpretive Statements SINUS RHYTHM NONSPECIFIC ST & T-WAVE ABNORMALITY Compared to ECG 08/22/2023 09:37:19 T-wave abnormality now present Electronically Signed On 03-18-2024 17:36:38 CDT by Rachel Amaya M.D. [email or web address]
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
[2024-03-18] MEDS: labetalol 5 mg/mL SDV 20mL 10 MG IVP (10:50)
[2024-03-18 10:58] LABS: Basophils % 0.4 %; Eosinophils # 0.1 10^3/uL (0.0-0.8); Eosinophils % 1.2 %; Hematocrit 41.8 % (36-47); Lymphocytes # 1.9 10^3/uL (0.8-4.8); Lymphocytes % 37.2 %; Mean Corpuscular HGB Conc 32.5 g/dL (30-55); Mean Corpuscular Hemoglobin 28.5 pg (27-33); Mean Corpuscular Volume 87.6 fl (85-98); Monocytes # 0.2 10^3/uL (0.2-0.9); Monocytes % 4.8 %; Neutrophils # 2.81 10^3/uL (1.8-7.7); Neutrophils % 56.2 %; Nucleated Red Blood Cells % 0 %; Platelet Count 190 10^3/cmm (157-399); Red Blood Count 4.77 10^6/uL (3.85-5.65); Red Cell Distribution Width 13.1 % (12.1-15.1)
[2024-03-18 11:16] LABS: Alanine Aminotransferase 21 U/L (0-33); Albumin Level 4.5 g/dL (3.5-5.2); Alkaline Phosphatase 90 U/L (35-105); Anion Gap 14.7 (5-19); Aspartate Amino Transferase 16 U/L (0-32); Blood Urea Nitrogen 16 mg/dL (8-23); Calcium 9.4 mg/dL (8.5-10.5); Carbon Dioxide 28 mmol/L (22-29); Chloride 105 mmol/L (98-107); Globulin 2.8 g/dL (1.3-4.6); Glomerular Filtration Rate 56.6 mL/min (90-130); Glucose 110 mg/dL (65-115); Osmolality Calculated 300 mOsm/kg (285-295); Potassium 3.7 mmol/L (3.5-5.1); Sodium 144 mmol/L (136-145); Total Bilirubin 0.4 mg/dL (0.15-1.2); Total Protein 7.3 g/dL (6.6-8.7)
[2024-03-18 11:33] VITALS: BP 122/79; PULSE 63; RESP 16
[2024-03-18 11:58] VITALS: BP 122/79; PULSE 88; RESP 16; O2SAT 98
[2024-03-18 11:59] VITALS: BP 122/79; PULSE 88; O2SAT 98
== END 2024-03-18 11:59 | disposition home or self-care (01) ==
PROVIDERS: Emergency Provider Emergency Medicine; PCP Family Medicine
DX: R51.9 Headache, unspecified (principal); I10 Essential (primary) hypertension; F17.210 Nicotine dependence, cigarettes, uncomplicated; Z86.73 Personal history of transient ischemic attack (TIA), and cerebral infarction without residual deficits
CPT/HCPCS: 70450; 80053; 85025; 93005; 96374; 99285; J3490